=== PATIENT | female | born 1985 | race Caucasian/White ===

== ENCOUNTER 2016-12-18 12:29 | Emergency (ER) | payer MEDICARE ==
[2016-12-18] MEDS ORDERED: Geodon 20 MG INJ IM ONE ×2 (12:30→12:35)
[2016-12-18 12:48] VITALS: O2SAT 100
[2016-12-18 13:02] LABS: BASOPHIL % 0.3 % (0.0-0.4); Granulocytes % 64.8 % (36.0-66.0); Lymphocytes % 27.3 % (24.0-44.0); Mean Cell Volume 89.7 fl (78-100); Mean Corpuscular Hemoglobin 29.4 pg (26-32); Mean Platelet Volume 11.4 fl (6-9.5); Monocytes % 6.6 % (0.0-12.0); Platelet Count 227 K/mm3 (150-450); Red Blood Count 5.04 M/mm3 (4.1-5.4); Red Cell Distribution Width 13.4 % (11.5-14.0); White Blood Count 10.4 K/mm3 (4.0-10.5)
[2016-12-18 13:05] LABS: COMPLETE URINE MICROSCOPIC? NO; Collection Type VOID; Ph 6.5 (5-6)
--- NOTE | 2016-12-18 13:20 | ERPHSYRPT ---
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 FATHER STATES HE RESPONDED TO HIS HOME TODAY WHERE PT HAD CALLED EMS BECAUSE "PEOPLE ARE AFTER ME." Triage Nursing Assessment: PT PINK, WARM, DRY. PT CONFUSED TO PERSON PLACE AND TIME. PT YELLING TRYING TO [facility]. PT SCARED AND FEARFUL OF SURROUNDINGS. Physician History: CC: bipolar disorder Hx: 31 y/o patient with no local doctor. She has hx of bipolar disorder. She has been off meds. Father states she has been having hallucinations and seeing and hearing things. She was taken to [facility] a couple of days ago complaining of back pain and labor although not and had BTL. They gave pain meds. The real issue is she is not living in reality. She was running around the house playing dress up last night. Father called EMS and she was brought to ER. Father reports she needs emergency chcf. Severity of Symptoms-Max: severe Severity of Symptoms-Current: severe Allergies/Adverse Reactions: lactose Allergy (Mild, Verified 12/18/16 13:23) Diarrhea latex Allergy (Mild, Verified 12/18/16 13:23) Hives nickel Allergy (Mild, Verified 12/18/16 13:23) Hives Home Medications: No Reportable Medications [No Reported Medications] 12/18/16 [History] Hx Tetanus, Diphtheria Vaccination/Date Given: Yes (UNKNOW) Hx Influenza Vaccination/Date Given: (UNKNOWN) Hx Pneumococcal Vaccination/Date Given: (UNKNOWN) Immunizations Up to Date: (UNKOWN) - Past Medical History Pertinent Past Medical History: Yes Neurological History: No Pertinent History ENT History: No Pertinent History Cardiac History: No Pertinent History Respiratory History: Asthma, COPD Endocrine Medical History: Hypothyroidism Musculoskeletal History: Fibromyalgia GI Medical History: No Pertinent History History: No Pertinent History Psycho-Social History: Bipolar, Depression, Other Female Reproductive Disorders: No Pertinent History Other Medical History: BORDERLINE PERSONALITY DISORDER, LEFT LUNG SCAR TISSUE, SCHIZO-EFFECT BIPOLAR - Past Surgical History Past Surgical History: Yes Neuro Surgical History: No Pertinent History Cardiac: No Pertinent History Respiratory: No Pertinent History Gastrointestinal: No Pertinent History Genitourinary: No Pertinent History Musculoskeletal: No Pertinent History Female Surgical History: Section, Tubal Ligation Other Surgical History: ovarian cysts removed. ABLASION - Social History Smoking Status: Current every day smoker How long have you smoked: 13 YRS Exposure to second hand smoke: No Alcohol Use: None Drug Use: none Patient Lives Alone: No (here with father) Significant Family History: no pertinent family hx - Female History Hx Last Menstrual Period: UNKNOWN Hx Now: No - Review of Systems Constitutional: No Fever Respiratory: No Dyspnea Abdominal/Gastrointestinal: No Nausea, No Vomiting Genitourinary Symptoms: (pt reports, father denies) Neurological: No Headache Psychological: Emotional Lability, Hallucinations All Other Systems: Reviewed and Negative - Nursing Vital Signs Nursing Vital Signs: Initial Vital Signs Temperature 99.1 F Temperature Source Oral Pulse Rate 101 Respiratory Rate 18 Blood Pressure [Right Arm] 121/69 - Physical Exam General Appearance: alert, thin, other (very anxious, arrived with rapid speech , irrational thoughts stating she is in labor and her water broke) Eyes, Ears, Nose, Throat Exam: moist mucous membranes Neck Exam: normal inspection, non-tender, supple Respiratory Exam: normal breath sounds Cardiovascular Exam: regular rate/rhythm Gastrointestinal/Abdominal Exam: soft, No tenderness, No distention Neurological Exam: alert Thoughts/Hallucinations: delusions, flight of ideas Skin Exam: warm, dry, No rash SpO2 Interpretation: normal SpO2: 100 Oxygen Delivery: Room Air - Course Nursing assessment & vital signs reviewed: Yes EKG Interpreted by Me: RATE (93), Sinus Rhythm, NORMAL AXIS, NORMAL INTERVALS ( QTc 473), NORMAL QRS, NORMAL ST-T Ordered Tests: Active Orders 24 hr Category Date Time Status Clean Catch Urine Specimen STAT Care 12/18/16 12:30 Active EKG-ER Only STAT Care 12/18/16 12:32 Active ACETAMINOPHEN Stat Lab 12/18/16 12:50 Completed CBC W DIFF Stat Lab 12/18/16 12:50 Completed CMP Stat Lab 12/18/16 12:50 Completed Ethyl Alcohol,Urine Stat Lab 12/18/16 12:54 Completed HCG QUALITATIVE,SERUM Stat Lab 12/18/16 12:50 Completed SALICYLATE Stat Lab 12/18/16 12:50 Completed UA Stat Lab 12/18/16 12:54 Completed Urine Triage Profile Stat Lab 12/18/16 12:54 Completed VALPROIC ACID (DEPAKOTE) Stat Lab 12/18/16 13:22 Completed Medication Summary Discontinued Medications Generic Name Dose Route Start Last Admin Trade Name Jonathanq PRN Reason Stop Dose Admin Ziprasidone 10 mg 12/18/16 12:30 12/18/16 12:41 Geodon 20 Mg Inj IM 12/18/16 12:31 10 mg STAT ONE Administration Ziprasidone Confirm 12/18/16 12:35 Geodon 20 Mg Inj Administered 12/18/16 12:36 Dose 20 mg IM .STK-MED ONE Lab/Rad Data: Laboratory Result Diagrams 12/18/16 12:50 12/18/16 12:50 Laboratory Results 12/18/16 12/18/16 12/18/16 Range/Units 13:22 12:54 12:54 WBC (4.0-10.5) K/mm3 RBC (4.1-5.4) M/mm3 Hgb (12.0-16.0) gm/dl Hct (35-47) % MCV (78-100) fl MCH (26-32) pg MCHC (32-36) g/dl RDW (11.5-14.0) % Plt Count (150-450) K/mm3 MPV (6-9.5) fl Gran % (36.0-66.0) % Lymphocytes % (24.0-44.0) % Monocytes % (0.0-12.0) % Eosinophils % (0.00-5.0) % Basophils % (0.0-0.4) % Basophils # (0-0.4) Sodium (136-145) mEq/L Potassium (3.5-5.1) mEq/L Chloride (98-107) mEq/L Carbon Dioxide (21-32) mEq/L Anion Gap (5-15) MEQ/L BUN (9-20) mg/dL Creatinine (0.55-1.30) mg/dl Estimated GFR ML/MIN Glucose (70-110) MG/DL Calcium (8.5-10.1) mg/dL Total Bilirubin (0.2-1.0) mg/dL AST (15-37) U/L ALT (12-78) U/L Alkaline Phosphatase (46-116) U/L Serum Total Protein (6.4-8.2) gm/dL Albumin (3.4-5.0) g/dL Serum , Qual (Negative) Ur Collection Type Urine Color (YELLOW) Urine Appearance (CLEAR) Urine pH 6.5 (5-6) Ur Specific [place] (1.005-1.025) Urine Protein (Negative) Urine Glucose (UA) (NEGATIVE) mg/dL Urine Ketones (NEGATIVE) Urine Nitrite (NEGATIVE) Urine Bilirubin (NEGATIVE) Urine Urobilinogen (0-1) mg/dL Urine WBC (Auto) (NEGATIVE) Urine RBC (Auto) (0-5) Juan/ul Salicylates (2.8-20.0) mg/dl Urine Opiates Level NEG. (NEGATIVE) Ur Methadone NEG. (NEGATIVE) Acetaminophen (10-30) ug/ml Urine Barbiturates NEG. (NEGATIVE) Valproic Acid < 3.0 L (50-100) UG/ML Ur Phencyclidine (PCP) NEG. (NEGATIVE) Urine Amphetamine NEG. (NEGATIVE) U Benzodiazepine Level NEG. (NEGATIVE) Urine Cocaine NEG. (NEGATIVE) Urine Marijuana (THC) NEG. (NEGATIVE) Urine Ethyl Alcohol < 3 (0.00-20) mg/dl Specimen Received 12/18/16 12/18/16 12/18/16 Range/Units 12:54 12:50 12:50 WBC (4.0-10.5) K/mm3 RBC (4.1-5.4) M/mm3 Hgb (12.0-16.0) gm/dl Hct (35-47) % MCV (78-100) fl MCH (26-32) pg MCHC (32-36) g/dl RDW (11.5-14.0) % Plt Count (150-450) K/mm3 MPV (6-9.5) fl Gran % (36.0-66.0) % Lymphocytes % (24.0-44.0) % Monocytes % (0.0-12.0) % Eosinophils % (0.00-5.0) % Basophils % (0.0-0.4) % Basophils # (0-0.4) Sodium 142 (136-145) mEq/L Potassium 3.7 (3.5-5.1) mEq/L Chloride 106 (98-107) mEq/L Carbon Dioxide 25.2 (21-32) mEq/L Anion Gap 14.3 (5-15) MEQ/L BUN 7 L (9-20) mg/dL Creatinine 0.78 (0.55-1.30) mg/dl Estimated GFR > 60 ML/MIN Glucose 98 (70-110) MG/DL Calcium 8.9 (8.5-10.1) mg/dL Total Bilirubin 0.7 (0.2-1.0) mg/dL AST 17 (15-37) U/L ALT 16 (12-78) U/L Alkaline Phosphatase 82 (46-116) U/L Serum Total Protein 6.8 (6.4-8.2) gm/dL Albumin 4.0 (3.4-5.0) g/dL Serum , Qual NEGATIVE (Negative) Ur Collection Type VOID Urine Color YELLOW (YELLOW) Urine Appearance CLEAR (CLEAR) Urine pH 6.5 (5-6) Ur Specific [place] <=1.005 (1.005-1.025) Urine Protein NEGATIVE (Negative) Urine Glucose (UA) NEGATIVE (NEGATIVE) mg/dL Urine Ketones NEGATIVE (NEGATIVE) Urine Nitrite NEGATIVE (NEGATIVE) Urine Bilirubin NEGATIVE (NEGATIVE) Urine Urobilinogen 0.2 (0-1) mg/dL Urine WBC (Auto) NEGATIVE (NEGATIVE) Urine RBC (Auto) NEGATIVE (0-5) Juan/ul Salicylates 6.1 (2.8-20.0) mg/dl Urine Opiates Level (NEGATIVE) Ur Methadone (NEGATIVE) Acetaminophen < 2.0 L (10-30) ug/ml Urine Barbiturates (NEGATIVE) Valproic Acid (50-100) UG/ML Ur Phencyclidine (PCP) (NEGATIVE) Urine Amphetamine (NEGATIVE) U Benzodiazepine Level (NEGATIVE) Urine Cocaine (NEGATIVE) Urine Marijuana (THC) (NEGATIVE) Urine Ethyl Alcohol (0.00-20) mg/dl Specimen Received 12/18/16 1250 12/18/16 Range/Units 12:50 WBC 10.4 (4.0-10.5) K/mm3 RBC 5.04 (4.1-5.4) M/mm3 Hgb 14.8 (12.0-16.0) gm/dl Hct 45.2 (35-47) % MCV 89.7 (78-100) fl MCH 29.4 (26-32) pg MCHC 32.7 (32-36) g/dl RDW 13.4 (11.5-14.0) % Plt Count 227 (150-450) K/mm3 MPV 11.4 H (6-9.5) fl Gran % 64.8 (36.0-66.0) % Lymphocytes % 27.3 (24.0-44.0) % Monocytes % 6.6 (0.0-12.0) % Eosinophils % 1.0 (0.00-5.0) % Basophils % 0.3 (0.0-0.4) % Basophils # 0.03 (0-0.4) Sodium (136-145) mEq/L Potassium (3.5-5.1) mEq/L Chloride (98-107) mEq/L Carbon Dioxide (21-32) mEq/L Anion Gap (5-15) MEQ/L BUN (9-20) mg/dL Creatinine (0.55-1.30) mg/dl Estimated GFR ML/MIN Glucose (70-110) MG/DL Calcium (8.5-10.1) mg/dL Total Bilirubin (0.2-1.0) mg/dL AST (15-37) U/L ALT (12-78) U/L Alkaline Phosphatase (46-116) U/L Serum Total Protein (6.4-8.2) gm/dL Albumin (3.4-5.0) g/dL Serum , Qual (Negative) Ur Collection Type Urine Color (YELLOW) Urine Appearance (CLEAR) Urine pH (5-6) Ur Specific [place] (1.005-1.025) Urine Protein (Negative) Urine Glucose (UA) (NEGATIVE) mg/dL Urine Ketones (NEGATIVE) Urine Nitrite (NEGATIVE) Urine Bilirubin (NEGATIVE) Urine Urobilinogen (0-1) mg/dL Urine WBC (Auto) (NEGATIVE) Urine RBC (Auto) (0-5) Juan/ul Salicylates (2.8-20.0) mg/dl Urine Opiates Level (NEGATIVE) Ur Methadone (NEGATIVE) Acetaminophen (10-30) ug/ml Urine Barbiturates (NEGATIVE) Valproic Acid (50-100) UG/ML Ur Phencyclidine (PCP) (NEGATIVE) Urine Amphetamine (NEGATIVE) U Benzodiazepine Level (NEGATIVE) Urine Cocaine (NEGATIVE) Urine Marijuana (THC) (NEGATIVE) Urine Ethyl Alcohol (0.00-20) mg/dl Specimen Received - Progress Progress Note: 12/18/16 13:27 Spoke to Delia at [facility]. No beds at . She was there yesterday. Pt has obvious decompensation with psychosis. Will fax labs and attempt placement. Pt will be under ED. 12/18/16 13:56 Pt more cooperative. Ambulated to . Called Delia in access and they arranged HC admission bed. Will transfer under ED. Dr Morales accepts. Counseled pt/family regarding: lab results, diagnosis, need for follow-up - Departure Time of Disposition: 13:56 Departure Disposition: Transfer () Clinical Impression: Psychosis, Bipolar disorder Condition: Stable Critical Care Time: No Referrals: DOCTOR,NO FAMILY [Primary Care Provider] -
[2016-12-18 13:26] LABS: ALKALINE PHOSPHATASE 82 U/L (46-116); ANION GAP 14.3 MEQ/L (5-15); BILIRUBIN,TOTAL 0.7 mg/dL (0.2-1.0); BLOOD UREA NITROGEN 7 mg/dL (9-20); CHLORIDE 106 mEq/L (98-107); Carbon Dioxide 25.2 mEq/L (21-32); Glucose 98 MG/DL (70-110); Potassium 3.7 mEq/L (3.5-5.1); SGOT/AST 17 U/L (15-37); SGPT/ALT 16 U/L (12-78); SODIUM 142 mEq/L (136-145); Total Protein 6.8 gm/dL (6.4-8.2)
[2016-12-18 13:33] LABS: ACETAMINOPHEN < 2.0 ug/ml (10-30)
[2016-12-18] MEDS ORDERED: Ativan 1 MG PO ONE (14:55)
[2016-12-18] MEDS ORDERED: Ativan 2 MG/1 ML VIAL SL ONE (14:56)
[2016-12-18] MEDS ORDERED: Ativan 2 MG/1 ML VIAL ONE (14:57)
[2016-12-18 16:46] VITALS: BP 103/60; PULSE 88
== END 2016-12-18 16:46 | disposition short-term general hospital (02) ==
LOC: ED 12:29
DX: F42.9 Obsessive-compulsive disorder, unspecified (principal); F31.9 Bipolar disorder, unspecified
CPT/HCPCS: 96372; 99291; 93005; 81002; 84703; 80339; 80307 ×2; 80320; 83986; 85025; 80053; G0481; 36415; 99285; J2060; J3486

== ENCOUNTER 2019-01-01 18:23 | Emergency (ER) | payer MEDICARE ==
--- NOTE | 2019-01-01 18:42 | ERPHSYRPT ---
- History of Present Illness Time Seen by Provider: 01/01/19 18:42 Source: patient, family Exam Limitations: no limitations Physician History: 33 y/o white female presents with redness to right medial thigh. pt thinks there was a spider bite. she did not see spider. redness is worsening. tenderness present. Timing/Duration: day(s) Quality: burning, painful Severity: mild Location: extremities (right medial thigh) Possible Causes: insect bite Associated Symptoms: swelling/mass/lumps (right medial thigh) Allergies/Adverse Reactions: lactose Allergy (Mild, Verified 01/01/19 18:57) Diarrhea latex Allergy (Mild, Verified 01/01/19 18:57) Hives nickel Allergy (Mild, Verified 01/01/19 18:57) Hives adhesive tape Adverse Reaction (Verified 01/01/19 18:58) asenapine [From Saphris] Adverse Reaction (Verified 01/01/19 18:58) lurasidone [From Latuda] Adverse Reaction (Verified 01/01/19 18:58) Home Medications: Alprazolam 0.5 mg [xanAX 0.5 MG] 0.5 mg PO HS 01/01/19 [History] Alprazolam 1 mg [Xanax 1 mg] 1 mg PO DAILY 01/01/19 [History] Cholecalciferol (Vitamin D3) [Vitamin D3] 3,000 unit PO DAILY 01/01/19 [History] Dicyclomine HCl 20 mg [Bentyl 20 mg] 20 mg PO QID 01/01/19 [History] Divalproex Sodium [Divalproex Sodium ER] 500 mg PO BID 01/01/19 [History] Levothyroxine Sodium 75 mcg PO DAILY 01/01/19 [History] Omeprazole 40 mg PO DAILY 01/01/19 [History] Hx Tetanus, Diphtheria Vaccination/Date Given: Yes (UNKNOW) Hx Influenza Vaccination/Date Given: (UNKNOWN) Hx Pneumococcal Vaccination/Date Given: (UNKNOWN) - Review of Systems Constitutional: No Symptoms Eyes: No Symptoms Ears, Nose, & Throat: No Symptoms Respiratory: No Symptoms Cardiac: No Symptoms Abdominal/Gastrointestinal: No Symptoms Genitourinary Symptoms: No Symptoms Musculoskeletal: No Symptoms Skin: Cellulitis, Other (approx 8cm X 8cm. central bite site. no expressible pus. 4 to 5 cm central area of induration) Neurological: No Symptoms Psychological: No Symptoms Endocrine: No Symptoms Hematologic/Lymphatic: No Symptoms Immunological/Allergic: No Symptoms All Other Systems: Reviewed and Negative - Past Medical History Pertinent Past Medical History: Yes Neurological History: No Pertinent History ENT History: No Pertinent History Cardiac History: No Pertinent History Respiratory History: Asthma, COPD Endocrine Medical History: Hypothyroidism Musculoskeletal History: Fibromyalgia GI Medical History: No Pertinent History History: No Pertinent History Psycho-Social History: Bipolar, Depression, Other Female Reproductive Disorders: No Pertinent History Other Medical History: BORDERLINE PERSONALITY DISORDER, LEFT LUNG SCAR TISSUE, SCHIZO-EFFECT BIPOLAR - Past Surgical History Past Surgical History: Yes Neuro Surgical History: No Pertinent History Cardiac: No Pertinent History Respiratory: No Pertinent History Gastrointestinal: No Pertinent History Genitourinary: No Pertinent History Musculoskeletal: No Pertinent History Female Surgical History: Section, Tubal Ligation Other Surgical History: ovarian cysts removed. ABLASION - Social History Smoking Status: Current every day smoker How long have you smoked: 13 YRS Exposure to second hand smoke: No Alcohol Use: None Drug Use: none Patient Lives Alone: No (here with father) Significant Family History: no pertinent family hx - Nursing Vital Signs Nursing Vital Signs: Initial Vital Signs Temperature 98.4 F 01/01/19 18:52 Pulse Rate 107 H 01/01/19 18:52 Respiratory Rate 16 01/01/19 18:52 Blood Pressure 110/80 01/01/19 18:52 O2 Sat by Pulse Oximetry 95 01/01/19 18:52 Pain Scale Pain Intensity 7 - Physical Exam General Appearance: no apparent distress, alert, anxiety Eye Exam: PERRL/EOMI, eyes nml inspection Ears, Nose, Throat Exam: normal ENT inspection, moist mucous membranes Neck Exam: normal inspection, non-tender, supple, full range of motion Respiratory Exam: normal breath sounds, lungs clear, airway intact, No chest tenderness, No respiratory distress Cardiovascular Exam: regular rate/rhythm, normal heart sounds, normal peripheral pulses Gastrointestinal/Abdomen Exam: soft, normal bowel sounds, No tenderness Pelvic Exam: not done Rectal Exam: not done Back Exam: normal inspection, normal range of motion, No CVA tenderness, No vertebral tenderness Extremity Exam: normal inspection, normal range of motion, No pelvis stable Neurologic Exam: alert, oriented x 3, cooperative, licensed psychologist manager II-XII nml as tested Skin Exam: other (localized cellulitis right medial thigh, no abscess, central induration) Lymphatic Exam: No adenopathy Ordered Tests: Medication Summary Discontinued Medications Generic Name Dose Route Start Last Admin Trade Name Freq PRN Reason Stop Dose Admin Hydrocodone Bitart/Acetaminophen 1 tab 01/01/19 19:47 01/01/19 20:06 [place] 10/325 Mg Tablet PO 01/01/19 19:48 1 tab STAT ONE Administration Hydrocodone Bitart/Acetaminophen Confirm 01/01/19 19:59 [place] 10/325 Mg Tablet Administered 01/01/19 20:00 Dose 1 tab .ROUTE .STK-MED ONE Ceftriaxone Sodium 1,000 mg 01/01/19 19:46 01/01/19 20:07 Rocephin 1000 Mg Inj IM 01/01/19 19:47 1,000 mg STAT ONE Administration Ceftriaxone Sodium Confirm 01/01/19 19:59 Rocephin 1000 Mg Inj Administered 01/01/19 20:00 Dose 1,000 mg .ROUTE .STK-MED ONE Lidocaine HCl Confirm 01/01/19 20:04 Xylocaine 1% Hcl 20 Ml Mdv Administered 01/01/19 20:05 Dose 1 ml .ROUTE .STK-MED ONE Methylprednisolone Sodium Succinate 125 mg 01/01/19 19:47 01/01/19 20:06 Solu-Medrol 125 Mg IM 01/01/19 19:48 125 mg STAT ONE Administration Methylprednisolone Sodium Succinate Confirm 01/01/19 19:59 Solu-Medrol 125 Mg Administered 01/01/19 20:00 Dose 125 mg .ROUTE .STK-MED ONE - Progress Progress: unchanged Counseled pt/family regarding: diagnosis, need for follow-up - Departure Departure Disposition: Home Clinical Impression: Cellulitis Condition: Stable Critical Care Time: No Referrals: SHIMON ROMEO [NON-STAFF Y W/O PRIVILEGES] - Additional Instructions: keep area clean daily with soap and water. warm compresses to area 2 to 3 times daily but not directly on skin. return to ED if symptoms worsen. Prescriptions: Hydrocodone/APAP 5/325 [[place] 5/325 mg] 1 each PO Q8H PRN PRN #6 tablet MDD 3 PRN Reason: Pain Smz/Tmp Ds Tablet [Bactrim Ds Tablet] 1 udtab PO BID #14 tablet
[2019-01-01] MEDS ORDERED: Rocephin 1000 MG INJ IM ONE (19:46)
[2019-01-01] MEDS ORDERED: Norco 10/325 MG Tablet PO ONE (19:47)
[2019-01-01] MEDS ORDERED: solu-MEDROL 125 MG IM ONE (19:47)
[2019-01-01] MEDS ORDERED: solu-MEDROL 125 MG ONE (19:59)
[2019-01-01] MEDS ORDERED: Rocephin 1000 MG INJ ONE (19:59)
[2019-01-01] MEDS ORDERED: Norco 10/325 MG Tablet ONE (19:59)
[2019-01-01] MEDS ORDERED: XYLOCAINE 1% HCL 20 ML MDV ONE (20:04)
[2019-01-01 20:30] VITALS: BP 113/68; PULSE 92; O2SAT 100
== END 2019-01-01 20:35 | disposition home or self-care (01) ==
LOC: ED 18:23
DX: L03.115 Cellulitis of right lower limb (principal); J44.9 Chronic obstructive pulmonary disease, unspecified; E03.9 Hypothyroidism, unspecified; M79.7 Fibromyalgia; F31.9 Bipolar disorder, unspecified; Z79.899 Other long term (current) drug therapy
CPT/HCPCS: 96372; 99284; J0696; J2930; A9270-GY

== ENCOUNTER 2019-01-12 23:43 | Emergency (ER) | payer MEDICARE ==
[2019-01-13] MEDS ORDERED: CLEOCIN 150 MG CAPSULE PO ONE (00:26)
--- NOTE | 2019-01-13 00:26 | ERPHSYRPT ---
- History of Present Illness Time Seen by Provider: 01/12/19 23:59 Source: patient Exam Limitations: clinical condition Patient Subjective Stated Complaint: Abscess/spider bite Triage Nursing Assessment: Patient ambulated back to ED and transferred self to bed. Patient A+O X 3. Patient states she was seen last week in ED for a spider bite to right upper inner thigh. Patient was put on Bactrim and finished out her dose. Patient complains of abscess still on her right upper inner thigh. Right upper inner thigh noted to have small scab with hard area around it. Patient complains of constant burning pain. Physician History: PATIENT TREATED FOR INSECT BITE TO RIGHT INNER THIGH ON 01/01/2019 WITH ANTIBIOTIC BACTRIM DS, NOW PRESENTS TO ER FOR FOLLOWUP. STATES THE CELLULITIS INITIALLY 8CM X 8CM HAS IMPROVED IN SIZE. DENIES FEVER OR CHILLS. ADMITS TO EXPRESSING WOUND. DENIES DRAINAGE FROM WOUND. Timing/Duration: day(s) (11 DAYS AGO) Quality: other (DENIES PAIN) Location: extremities Possible Causes: insect bite Associated Symptoms: denies symptoms Allergies/Adverse Reactions: lactose Allergy (Mild, Verified 01/12/19 23:48) Diarrhea latex Allergy (Mild, Verified 01/12/19 23:48) Hives nickel Allergy (Mild, Verified 01/12/19 23:48) Hives adhesive tape Adverse Reaction (Verified 01/12/19 23:48) asenapine [From Saphris] Adverse Reaction (Verified 01/12/19 23:48) lurasidone [From Latuda] Adverse Reaction (Verified 01/12/19 23:48) Home Medications: Alprazolam 0.5 mg [xanAX 0.5 MG] 0.5 mg PO DAILY PRN 01/01/19 [History] Alprazolam 1 mg [Xanax 1 mg] 1 mg PO BID 01/01/19 [History] Dicyclomine HCl 20 mg [Bentyl 20 mg] 20 mg PO QID 01/01/19 [History] Divalproex Sodium [Divalproex Sodium ER] 1,500 mg PO HS 01/01/19 [History] Levothyroxine Sodium 75 mcg PO DAILY 01/01/19 [History] Omeprazole 40 mg PO DAILY 01/01/19 [History] Acyclovir 1 tab PO BID 01/12/19 [History] Sertraline HCl [Zoloft] 100 mg PO DAILY 01/12/19 [History] Hx Tetanus, Diphtheria Vaccination/Date Given: (UNKNOW) Hx Influenza Vaccination/Date Given: (UNKNOWN) Hx Pneumococcal Vaccination/Date Given: (UNKNOWN) Immunizations Up to Date: Yes - Review of Systems Constitutional: No Symptoms Musculoskeletal: Other (LOCALIZED SWELLING OVER RIGHT THIGH) Neurological: No Symptoms - Past Medical History Pertinent Past Medical History: Yes Neurological History: No Pertinent History ENT History: No Pertinent History Cardiac History: No Pertinent History Respiratory History: Asthma, COPD Endocrine Medical History: Hypothyroidism Musculoskeletal History: Fibromyalgia GI Medical History: No Pertinent History History: No Pertinent History Psycho-Social History: Bipolar, Depression, Other Female Reproductive Disorders: No Pertinent History Other Medical History: BORDERLINE PERSONALITY DISORDER, LEFT LUNG SCAR TISSUE, SCHIZO-EFFECT BIPOLAR - Past Surgical History Past Surgical History: Yes Neuro Surgical History: No Pertinent History Cardiac: No Pertinent History Respiratory: No Pertinent History Gastrointestinal: No Pertinent History Genitourinary: No Pertinent History Musculoskeletal: No Pertinent History Female Surgical History: Section, Tubal Ligation Other Surgical History: ovarian cysts removed. ABLASION - Social History Smoking Status: Current every day smoker How long have you smoked: 13 YRS Exposure to second hand smoke: No Alcohol Use: None Drug Use: none Patient Lives Alone: No Significant Family History: no pertinent family hx - Female History Hx Last Menstrual Period: Thermal lining ablation of uterus Hx Now: No - Nursing Vital Signs Nursing Vital Signs: Initial Vital Signs Pulse Rate 79 01/12/19 23:44 Blood Pressure 124/73 01/12/19 23:44 O2 Sat by Pulse Oximetry 98 01/12/19 23:44 Pain Scale Pain Intensity 3 - Physical Exam General Appearance: no apparent distress Extremity Exam: other (THERE IS A 1CM X 1.5CM NONFLUCTUANT SWELLING MID RIGHT THIGH, MEDIA ASPECT, NO DRAINAGE OR ERYTHEMA ADJACENT TO LESION) SpO2 Interpretation: normal SpO2: 92 - Progress Progress Note: 01/13/19 00:29 ADMINISTERED CLINDAYMCIN 300MG ORALLY Counseled pt/family regarding: diagnosis, need for follow-up - Departure Departure Disposition: Home Clinical Impression: RESOLVING CELLULITIS RIGHT THIGH Condition: Stable Critical Care Time: No Referrals: Provider,Unknown [NON-STAFF PHY W/O PRIVILEGES] - Additional Instructions: AVOID EXPRESSING THIGH LESION. ANTIBIOTIC CLINDAYMCIN 300MG EVERY 8 HOURS FOR 7 DAYS. CONSULT YOUR PRIMARY CARE PROVIDER FOR FOLLOWUP IN 1 WEEK. WATCH FOR SIGNS OF INFECTION REDNESS, SWELLING OR DRAINAGE. Prescriptions: Clindamycin HCl 300 mg PO TID #21 capsule
[2019-01-13] MEDS ORDERED: CLEOCIN 150 MG CAPSULE ONE (00:31)
[2019-01-13 00:38] VITALS: BP 108/55; PULSE 73; O2SAT 98
== END 2019-01-13 00:45 | disposition home or self-care (01) ==
LOC: ED 23:43
DX: L03.116 Cellulitis of left lower limb (principal); Z79.899 Other long term (current) drug therapy; E03.9 Hypothyroidism, unspecified; J44.9 Chronic obstructive pulmonary disease, unspecified; M79.7 Fibromyalgia; J45.909 Unspecified asthma, uncomplicated; F31.9 Bipolar disorder, unspecified; T63.301A Toxic effect of unspecified spider venom, accidental (unintentional), initial encounter
CPT/HCPCS: 99283; A9270-GY

== ENCOUNTER 2019-05-22 21:04 | Emergency (ER) | payer MEDICARE ==
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
[2019-05-23 00:16] VITALS: PULSE 81
[2019-05-23] MEDS ORDERED: TYLENOL 325 MG PO STA (00:39)
[2019-05-23] MEDS ORDERED: Cyclobenzaprine 10 MG PO ONE (00:39)
[2019-05-23] MEDS ORDERED: Cyclobenzaprine 10 MG ONE (00:42)
[2019-05-23] MEDS ORDERED: TYLENOL 325 MG ONE (00:42)
[2019-05-23 01:55] VITALS: BP 118/64; O2SAT 99
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
== END 2019-05-23 01:58 | disposition home or self-care (01) ==
LOC: ED 21:04
DX: T14.8XXA Other injury of unspecified body region, initial encounter (principal); Y04.0XXA Assault by unarmed brawl or fight, initial encounter; Y93.9 Activity, unspecified; S06.9X9A Unspecified intracranial injury with loss of consciousness of unspecified duration, initial encounter; R51 Headache; M54.2 Cervicalgia; M79.642 Pain in left hand; M25.561 Pain in right knee; R07.9 Chest pain, unspecified; F41.9 Anxiety disorder, unspecified; J44.9 Chronic obstructive pulmonary disease, unspecified; E03.9 Hypothyroidism, unspecified; Z79.899 Other long term (current) drug therapy
CPT/HCPCS: 70450; 72125; 73130; 73560; 93005; 99284; A9270-GY

== ENCOUNTER 2020-12-06 21:43 | Emergency (ER) | payer MEDICARE ==
[2020-12-06 22:27] LABS: Absolute Neutrophil Ct (ANC) 7.15 (1.4-6.9); BASOPHIL % 0.2 % (0.0-0.4); Basophil (Absolute #) 0.03 (0-0.4); Eosinophil % 0.6 % (0.00-5.0); Eosinophil (Absolute #) 0.07 (0-0.5); Hematocrit 43.6 % (35-47); Hemoglobin 14.1 gm/dl (12.0-16.0); Lymphocyte (Absolute #) 4.17 (1.0-4.6); Lymphocytes % 34.4 % (24.0-44.0); Mean Corpuscular Hemoglobin 29.4 pg (26-32); Mean Corpuscular Hgb Concent. 32.3 g/dl (32-36); Mean Platelet Volume 11.4 fl (7.5-11.0); Monocyte (Absolute #) 0.69 (0.0-1.3); Monocytes % 5.7 % (0.0-12.0); Neutrophil % 59.1 % (36.0-66.0); Platelet Count 227 K/mm3 (150-450); Red Blood Count 4.79 M/mm3 (4.1-5.4); White Blood Count 12.1 K/mm3 (4.0-10.5)
[2020-12-06 22:35] LABS: ALBUMIN 4.4 g/dL (3.5-5.0); ALKALINE PHOSPHATASE 64 U/L (38-126); ANION GAP 10.6 MEQ/L (5-15); BLOOD UREA NITROGEN 12 mg/dL (7-17); CHLORIDE 104 mmol/L (98-107); Calcium 9.6 mg/dL (8.4-10.2); Carbon Dioxide 27 mmol/L (22-30); Creatinine 1 0.56 mg/dL (0.52-1.04); EST GLOMERULAR FILTRATION RATE > 60.0 ML/MIN; ETHYL ALCOHOL < 10 mg/dL (0-10); Glucose 116 mg/dL (74-106); Potassium 3.4 mmol/L (3.5-5.1); SALICYLATE < 1.0 mg/dL (2-20); SGOT/AST 20 U/L (14-36); SGPT/ALT 16 U/L (0-35); SODIUM 139 mmol/L (137-145); Total Protein 7.1 g/dL (6.3-8.2)
[2020-12-06 22:39] LABS: Appearance SLIGHTLY CLOUDY (CLEAR); Bilirubin NEGATIVE (NEGATIVE); Blood NEGATIVE Ery/ul (0-5); Epithelial Cells RARE /HPF (FEW); Glucose NEGATIVE (NEGATIVE); Ketones NEGATIVE (NEGATIVE); Leukocyte Esterase NEGATIVE (NEGATIVE); Mucus SLIGHT /HPF (NEGATIVE); Nitrite NEGATIVE (NEGATIVE); Protein,Urine Dip NEGATIVE (Negative); Urobilinogen 2 mg/dL (0-1)
[2020-12-06 22:50] LABS: Barbiturate,Urine NEGATIVE (NEGATIVE); Benzodiazepine,Urine NEGATIVE (NEGATIVE); Cocaine,Urine NEGATIVE (NEGATIVE); Methadone,Urine NEGATIVE (NEGATIVE); Opiate,Urine NEGATIVE (NEGATIVE); PCP,Urine NEGATIVE (NEGATIVE); THC,Urine NEGATIVE (NEGATIVE)
[2020-12-06 23:13] LABS: Amphetamine,Urine POSITIVE (NEGATIVE)
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
[2020-12-07] MEDS ORDERED: Klor Con 10 MEQ PO ONE ×2 (00:21→00:31)
[2020-12-07] MEDS ORDERED: Inapsine 5 MG/2 ML IV ONE (00:53)
[2020-12-07 07:27] VITALS: BP 106/58; PULSE 65; O2SAT 97
--- NOTE | 2020-12-07 08:57 | XRAY ---
Indication: Posterior neck pain. No known injury. Multiple contiguous axial images obtained through the cervical spine. Sagittal and coronal reformatted images obtained. Comparison: May 22, 2019. Axial images again negative for acute fracture, suspicious bony lesions, or spinal canal stenosis. Spinous processes C6 again demonstrates old fracture versus nonunited ossification center. Sagittal and coronal reformatted images again demonstrates lordotic reversal, positional versus paraspinal spasm. Vertebral body heights/disc spaces maintained. Again no acute compression fracture, subluxation, or jumped facet. Normal appearing craniocervical junction. Visualized noncontrasted soft tissues including base of the brain and lung apices are unremarkable. Impression: 1. Stable cervical lordotic reversal, positional versus paraspinal spasm. 2. Stable C6 spinous process old fracture versus nonunited ossification center. 3. No new or acute abnormalities. Comment: Preliminary interpretation was made by [facility]. No critical discrepancy.
== END 2020-12-07 07:29 ==
LOC: ED 21:43
DX: F20.9 Schizophrenia, unspecified (principal); F23 Brief psychotic disorder; R45.6 Violent behavior
CPT/HCPCS: 36415; 72125; 80053; 80307; 81001; 82550; 84703; 85025; 93005; 96374; 99285; G0480; A9270-GY

== ENCOUNTER 2020-12-28 10:21 | Emergency (ER) | payer MEDICARE ==
[2020-12-28 10:29] VITALS: BP 118/79; PULSE 83; O2SAT 100
[2020-12-28] MEDS ORDERED: Augmentin 875-125 Tablet ONE (10:30)
[2020-12-28] MEDS ORDERED: TORAdol 30 mg Injection ONE (10:30)
[2020-12-28] MEDS: TORAdol 30 mg Injection IM ONE (10:30)
[2020-12-28] MEDS: Augmentin 875-125 Tablet PO ONE (10:30)
--- NOTE | 2020-12-28 10:31 | ERPHSYRPT ---
- History of Present Illness Time Seen by Provider: 12/28/20 10:30 Source: patient Exam Limitations: no limitations Patient Subjective Stated Complaint: pt here for toothache to lower left jaw Triage Nursing Assessment: pt arrived per ambulance, skin w/d/p, resp easy, has face mask in place,pt has decayed tooth to lower left jaw Physician History: Patient is a 35-year-old female presents to our ED with complaints of dental pain today Patient has a carious tooth left mandible. And specific tooth #17 is carious tender. Pain worse with mastication. Pain improved with rest. Pain tends to cause a slight headache. No trauma no fever. No nausea or vomiting. No diaphoresis. Symptoms are mild to moderate in intensity. No specific worsening improving factors. Patient denies possibility of . Patient otherwise voices no other complaints concerns at this time. Timing/Duration: today Severity: moderate Modifying Factors: Improves With: eating Associated Symptoms: denies symptoms Allergies/Adverse Reactions: lactose Allergy (Mild, Verified 12/28/20 10:29) Diarrhea latex Allergy (Mild, Verified 12/28/20 10:29) Hives nickel Allergy (Mild, Verified 12/28/20 10:29) Hives adhesive tape Adverse Reaction (Verified 12/28/20 10:29) asenapine [From Saphris] Adverse Reaction (Verified 12/28/20 10:29) lurasidone [From Latuda] Adverse Reaction (Verified 12/28/20 10:29) Home Medications: Divalproex Sodium [Divalproex Sodium ER] 500 mg PO HS 01/01/19 [History] Levothyroxine Sodium 88 mcg PO DAILY 01/01/19 [History] Sertraline HCl [Zoloft] 50 mg PO DAILY 01/12/19 [History] Metformin HCl 500 mg [Glucophage 500 MG] 500 mg PO BID 12/06/20 [History] Hx Tetanus, Diphtheria Vaccination/Date Given: Yes Hx Influenza Vaccination/Date Given: No Hx Pneumococcal Vaccination/Date Given: No Immunizations Up to Date: Yes Travel Risk - International Travel Have you traveled outside of the country in past 3 weeks: No - Coronavirus Screening Are you exhibiting any of the following symptoms?: No Close contact with a COVID-19 positive Pt in past 14-21 Days: No - Vaccine Status Have you recieved a Covid-19 vaccination: Yes Parakeet Raiser: Moderna - Vaccination Dates Date of 2cond Vaccination (if applicable): NA - Review of Systems Constitutional: No Symptoms, No Fever, No Chills Eyes: No Symptoms Ears, Nose, & Throat: No Symptoms Respiratory: No Symptoms, No Cough, No Dyspnea Cardiac: No Symptoms, No Chest Pain, No Edema, No Syncope Abdominal/Gastrointestinal: No Symptoms, No Abdominal Pain, No Nausea, No Vomiting, No Diarrhea Genitourinary Symptoms: No Symptoms, No Dysuria Musculoskeletal: No Symptoms, No Back Pain, No Neck Pain Skin: No Symptoms, No Rash Neurological: No Symptoms, No Dizziness, No Focal Weakness, No Sensory Changes Psychological: No Symptoms Endocrine: No Symptoms Hematologic/Lymphatic: No Symptoms Immunological/Allergic: No Symptoms All Other Systems: Reviewed and Negative - Past Medical History Pertinent Past Medical History: Yes Neurological History: No Pertinent History ENT History: No Pertinent History Cardiac History: No Pertinent History Respiratory History: Asthma, COPD Endocrine Medical History: Diabetes Type II, Hypothyroidism Musculoskeletal History: Fibromyalgia, Other GI Medical History: No Pertinent History History: No Pertinent History Psycho-Social History: Bipolar, Depression, Other Female Reproductive Disorders: No Pertinent History Other Medical History: BIPOAR, PTSD, SCHIZOPHRENIC. spinal stenosis, scoliosis, disk degen disease - Past Surgical History Past Surgical History: Yes Neuro Surgical History: No Pertinent History Cardiac: No Pertinent History Respiratory: No Pertinent History Gastrointestinal: No Pertinent History Genitourinary: No Pertinent History Musculoskeletal: No Pertinent History Female Surgical History: Section, Tubal Ligation Other Surgical History: ovarian cysts removed. ABLATION - Social History Smoking Status: Current every day smoker How long have you smoked: 21 yrs Exposure to second hand smoke: Yes Alcohol Use: None Drug Use: marijuana Patient Lives Alone: No Significant Family History: no pertinent family hx - Female History Hx Last Menstrual Period: post Hx Now: No - Nursing Vital Signs Nursing Vital Signs: Initial Vital Signs Temperature 99.5 F 12/28/20 10:24 Pulse Rate 83 12/28/20 10:24 Respiratory Rate 18 12/28/20 10:24 Blood Pressure 118/79 12/28/20 10:24 O2 Sat by Pulse Oximetry 100 12/28/20 10:24 Pain Scale Pain Intensity 10 - Physical Exam General Appearance: no apparent distress, alert Eye Exam: PERRL/EOMI, eyes nml inspection Ears, Nose, Throat Exam: normal ENT inspection, TMs normal, pharynx normal, moist mucous membranes, other (Tooth #17 is carious. There is swelling of the adjacent gingiva. The tooth is tender. Minimal swelling however. Remaining of intraoral exam is within normal limits. No lymphadenopathy) Neck Exam: normal inspection, non-tender, supple, full range of motion Respiratory Exam: normal breath sounds, lungs clear, No respiratory distress Cardiovascular Exam: regular rate/rhythm, normal heart sounds, normal peripheral pulses Gastrointestinal/Abdomen Exam: soft, normal bowel sounds, No tenderness, No mass Back Exam: normal inspection, normal range of motion, No CVA tenderness, No vertebral tenderness Extremity Exam: normal inspection, normal range of motion, pelvis stable Neurologic Exam: alert, oriented x 3, cooperative, normal mood/affect, nml cerebellar function, nml station & gait, sensation nml, No motor deficits Skin Exam: normal color, warm, dry, No rash Lymphatic Exam: No adenopathy SpO2 Interpretation: normal SpO2: 100 O2 Delivery: Room Air - Course Nursing assessment & vital signs reviewed: Yes Ordered Tests: Medication Summary Discontinued Medications Generic Name Dose Route Start Last Admin Trade Name Freq PRN Reason Stop Dose Admin Amoxicillin/Clavulanate Potassium 875 mg 12/28/20 10:25 12/28/20 10:30 Augmentin 875-125 Tablet PO 12/28/20 10:26 875 mg STAT ONE Administration Amoxicillin/Clavulanate Potassium Confirm 12/28/20 10:30 Augmentin 875-125 Tablet Administered 12/28/20 10:31 Dose 875 mg .ROUTE .STK-MED ONE Ketorolac Tromethamine 30 mg 12/28/20 10:24 12/28/20 10:30 Toradol 30 Mg Injection IM 12/28/20 10:25 30 mg STAT ONE Administration Ketorolac Tromethamine Confirm 12/28/20 10:30 Toradol 30 Mg Injection Administered 12/28/20 10:31 Dose 30 mg .ROUTE .STK-MED ONE - Progress Progress: improved Progress Note: Patient reassessed. Pain improved. Vitals stable. Patient has a carious tooth. Toradol for pain control administered. Patient received a dose of Augmentin orally as well. No indication for further work-up at this time. A prescription for Augmentin and Toradol was forwarded to patient's pharmacy. Wi ll discharge home. Patient will follow up with her dentist or primary care doctor within 48 hours for reevaluation. His patient voices no other complaints at this time. 12/28/20 10:35 12/28/20 10:39 Counseled pt/family regarding: diagnosis, need for follow-up, smoking cessation - Departure Departure Disposition: Home Clinical Impression: Tooth caries, Pain, dental, Dental abscess Condition: Stable Critical Care Time: No Referrals: MILTON CHAN, [Primary Care Provider] - Instructions: Dental Pain (DC), Tooth Decay, Adult (DC) Additional Instructions: Discharge/Care Plan BRIAN SERNA was seen on 12/28/20 in the Emergency Room. The patient was counseled regarding Diagnosis,Lab results, Imaging studies, need for follow up and when to return to the Emergency Room. Prescriptions given: Discharge Note I have spoken with the patient and/or caregivers. I have explained the patient's condition, diagnosis and treatment plan based on the information available to me at this time. I have answered the patient's and/or caregiver's questions and addressed any concerns. The patient and/or caregivers have as good understanding of the patient's diagnosis, condition and treatment plan as can be expected at this point. The vital signs have been stable. The patient's condition is stable and appropriate for discharge from the emergency department. The patient will pursue further outpatient evaluation with the primary care physician or other designated or consulting physician as outlined in the discharge instructions. The patient and/or caregivers are agreeable to this plan of care and follow-up instructions have been explained in detail. The patient and/or caregivers have received these instruction. The patient/and or caregivers are aware that any significant change in condition or worsening of symptoms should prompt an immediate return to this or the closest emergency department or call 911. Prescriptions: Amox Tr/Potass Clav. 875 mg [Augmentin 875-125 Tablet] 1 each PO BID 7 Days #14 tablet Ketorolac Tromethamine [Toradol] 10 mg PO TID 5 Days #15 tablet
== END 2020-12-28 10:55 | disposition home or self-care (01) ==
LOC: ED 10:21
DX: K02.9 Dental caries, unspecified (principal); K08.89 Other specified disorders of teeth and supporting structures; K04.7 Periapical abscess without sinus
CPT/HCPCS: 96372; 99283; J1885; A9270-GY

== ENCOUNTER 2021-06-21 17:53 | Emergency (ER) | payer MEDICARE ==
--- NOTE | 2021-06-21 17:55 | ERPHSYRPT ---
- History of Present Illness Time Seen by Provider: 06/21/21 17:54 Source: patient, EMS Exam Limitations: no limitations Physician History: This is a 36-year-old white female who presents with concerns of infection of a spider bite that occurred approximately 1 week ago. Approximately 5 days ago she was seen at [facility] and there was incision and drainage and packing of spider bite abscess on the left inner thigh. She did not take the packing out for several days and she took the packing out and it was black. She became concerned. She was also concerned about the redness around the opening of the incision and drainage site as well as the yellowish film of tissue present. There is been clear drainage from the site. She has had no fevers or chills. She is on doxycycline and cefdinir antibiotics. Quality: burning Severity: mild (Moderate) Location: extremities (Left inner thigh) Possible Causes: insect bite Associated Symptoms: denies symptoms Allergies/Adverse Reactions: latex Allergy (Mild, Verified 06/21/21 17:59) Hives nickel Allergy (Mild, Verified 06/21/21 17:59) Hives adhesive tape Adverse Reaction (Verified 06/21/21 17:59) asenapine [From Saphris] Adverse Reaction (Verified 06/21/21 17:59) lurasidone [From Latuda] Adverse Reaction (Verified 06/21/21 17:59) Home Medications: Divalproex Sodium [Divalproex Sodium ER] 500 mg PO HS 01/01/19 [History] Levothyroxine Sodium 88 mcg PO DAILY 01/01/19 [History] Sertraline HCl [Zoloft] 50 mg PO DAILY 01/12/19 [History] Metformin HCl 500 mg [Glucophage 500 MG] 500 mg PO BID 12/06/20 [History] Cefdinir [Omnicef 300 mg] 300 mg PO BID 06/21/21 [History] Gabapentin 100 mg [Neurontin 100 MG] 100 mg PO HS 06/21/21 [History] Hydroxyzine HCl 25 mg [Atarax 25 mg] 25 mg PO HS 06/21/21 [History] Hx Tetanus, Diphtheria Vaccination/Date Given: Yes Hx Influenza Vaccination/Date Given: No Hx Pneumococcal Vaccination/Date Given: No Travel Risk - International Travel Have you traveled outside of the country in past 3 weeks: No - Coronavirus Screening Are you exhibiting any of the following symptoms?: No Close contact with a COVID-19 positive Pt in past 14-21 Days: No - Vaccine Status Have you recieved a Covid-19 vaccination: Yes Stockroom Helper: Moderna - Vaccination Dates Date of 2cond Vaccination (if applicable): NA - Review of Systems Constitutional: No Symptoms Eyes: No Symptoms Ears, Nose, & Throat: No Symptoms Respiratory: No Symptoms Cardiac: No Symptoms Abdominal/Gastrointestinal: No Symptoms Genitourinary Symptoms: No Symptoms Musculoskeletal: No Symptoms Skin: Other (Open incision and drainage abscess site left inner thigh.) Neurological: No Symptoms Psychological: No Symptoms Endocrine: No Symptoms Hematologic/Lymphatic: No Symptoms Immunological/Allergic: No Symptoms All Other Systems: Reviewed and Negative - Past Medical History Pertinent Past Medical History: Yes Neurological History: No Pertinent History ENT History: No Pertinent History Cardiac History: No Pertinent History Respiratory History: Asthma, COPD Endocrine Medical History: Diabetes Type II, Hypothyroidism Musculoskeletal History: Fibromyalgia, Other GI Medical History: No Pertinent History History: No Pertinent History Psycho-Social History: Bipolar, Depression, Other Female Reproductive Disorders: No Pertinent History Other Medical History: BIPOAR, PTSD, SCHIZOPHRENIC. spinal stenosis, scoliosis, disk degen disease - Past Surgical History Past Surgical History: Yes Neuro Surgical History: No Pertinent History Cardiac: No Pertinent History Respiratory: No Pertinent History Gastrointestinal: No Pertinent History Genitourinary: No Pertinent History Musculoskeletal: No Pertinent History Female Surgical History: Section, Tubal Ligation Other Surgical History: ovarian cysts removed. ABLATION - Social History Smoking Status: Current every day smoker How long have you smoked: 21 yrs Exposure to second hand smoke: Yes Alcohol Use: None Drug Use: marijuana Patient Lives Alone: No Significant Family History: no pertinent family hx - Nursing Vital Signs Nursing Vital Signs: Initial Vital Signs Temperature 97.9 F 06/21/21 18:01 Pulse Rate 76 06/21/21 18:01 Respiratory Rate 20 06/21/21 18:01 Blood Pressure 105/66 06/21/21 18:01 O2 Sat by Pulse Oximetry 98 06/21/21 18:01 Pain Scale Pain Intensity 10 - Physical Exam General Appearance: no apparent distress, alert, anxiety Eye Exam: PERRL/EOMI, eyes nml inspection Ears, Nose, Throat Exam: normal ENT inspection, moist mucous membranes Neck Exam: normal inspection, non-tender, supple, full range of motion Respiratory Exam: airway intact, No chest tenderness, No respiratory distress Gastrointestinal/Abdomen Exam: No tenderness Pelvic Exam: not done Rectal Exam: not done Back Exam: normal inspection, normal range of motion, No CVA tenderness, No vertebral tenderness Extremity Exam: normal range of motion, tenderness (At the left inner thigh incision and drainage site. There is no odor. There is no evidence of periwound cellulitis. However there is some redness and mild redness exudate present within the wound and edges of the wound.) Neurologic Exam: alert, oriented x 3, cooperative, buckle sewer II-XII nml as tested, normal mood/affect, nml cerebellar function, nml station & gait, sensation nml Skin Exam: normal color, warm, dry Lymphatic Exam: No adenopathy SpO2 Interpretation: normal O2 Delivery: Room Air Procedures - Additional Procedures Progress: The open incision drainage abscess site was cleaned and packed with half-inch plain packing gauze and covered with a bandage. Patient told the procedure well. - Course Nursing assessment & vital signs reviewed: Yes Ordered Tests: Medication Summary Generic Name Dose Route Start Last Admin Trade Name Freq PRN Reason Stop Dose Admin Ceftriaxone Sodium/Dextrose 1 g in 50 mls @ 100 mls/hr 06/21/21 19:09 Rocephin 1 Gm-D5w 50 Ml Bag IV 06/21/21 19:38 STAT STA - Progress Progress: unchanged, pain not gone completely Counseled pt/family regarding: diagnosis, need for follow-up - Departure Departure Disposition: Home Clinical Impression: Visit for wound check Condition: Stable Critical Care Time: No Referrals: MILTON CHAN DO [NON-STAFF PHY W/O PRIVILEGES] - Additional Instructions: Wound was packed today in the emergency department. Keep the current packing in place till tomorrow evening. Tomorrow evening pulled the packing out dry. Clean the site with syringe as you were doing using soapy water. Flush it out very well. Repacked the wound each day and repeat. Continue taking your antibiotics as prescribed. Follow-up with your primary care physician for further management.
[2021-06-21] MEDS ORDERED: ROCEPHIN 1 Gm-D5w 50 ml Bag** 1 G/50 ML IVPB IV STA (19:09)
[2021-06-21] MEDS ORDERED: ROCEPHIN 1 Gm-D5w 50 ml Bag** 1 G/50 ML IVPB IV ONE (19:15)
[2021-06-21 19:19] VITALS: BP 97/60; PULSE 72; O2SAT 99
== END 2021-06-21 19:52 | disposition home or self-care (01) ==
LOC: ED 17:53
DX: Z48.00 Encounter for change or removal of nonsurgical wound dressing (principal)
CPT/HCPCS: 36000; 99284; J0696

== ENCOUNTER 2021-07-24 18:06 | Emergency (ER) | payer MEDICARE ==
[2021-07-24 18:09] VITALS: BP 121/70; PULSE 94; O2SAT 100
[2021-07-24 18:34] LABS: Absolute Neutrophil Ct (ANC) 4.03 (1.4-6.9); BASOPHIL % 0.4 % (0.0-0.4); Basophil (Absolute #) 0.03 (0-0.4); Eosinophil % 1.6 % (0.00-5.0); Eosinophil (Absolute #) 0.12 (0-0.5); Hematocrit 46.1 % (35-47); Hemoglobin 15.4 gm/dl (12.0-16.0); Lymphocyte (Absolute #) 2.99 (1.0-4.6); Lymphocytes % 39.6 % (24.0-44.0); Mean Cell Volume 91.7 fl (78-100); Mean Corpuscular Hemoglobin 30.6 pg (26-32); Mean Corpuscular Hgb Concent. 33.4 g/dl (32-36); Mean Platelet Volume 11.1 fl (7.5-11.0); Monocyte (Absolute #) 0.38 (0.0-1.3); Neutrophil % 53.4 % (36.0-66.0); Platelet Count 288 K/mm3 (150-450); Red Blood Count 5.03 M/mm3 (4.1-5.4); Red Cell Distribution Width 13.1 % (11.5-14.0); White Blood Count 7.6 K/mm3 (4.0-10.5)
[2021-07-24] MEDS ORDERED: Sodium Chloride 0.9% 1000 ML 1,000 ML IV STA (18:36)
[2021-07-24] MEDS ORDERED: Sodium Chloride 0.9% 1000 ML 1,000 ML ONE (18:36)
[2021-07-24 18:37] LABS: Appearance CLEAR (CLEAR); Bilirubin NEGATIVE (NEGATIVE); Blood NEGATIVE Ery/ul (0-5); Glucose >=500 mg/dL (NEGATIVE); Ketones SMALL (NEGATIVE); Leukocyte Esterase NEGATIVE (NEGATIVE); Nitrite NEGATIVE (NEGATIVE); Protein,Urine Dip NEGATIVE (Negative); Urobilinogen NEGATIVE mg/dL (0-1)
[2021-07-24 18:47] LABS: ALBUMIN 4.3 g/dL (3.5-5.0); ALKALINE PHOSPHATASE 87 U/L (38-126); ANION GAP 14.5 MEQ/L (5-15); BLOOD UREA NITROGEN 7 mg/dL (7-17); CHLORIDE 92 mmol/L (98-107); Calcium 9.3 mg/dL (8.4-10.2); Carbon Dioxide 24 mmol/L (22-30); Creatinine 1 0.45 mg/dL (0.52-1.04); EST GLOMERULAR FILTRATION RATE > 60.0 ML/MIN; Potassium 4.4 mmol/L (3.5-5.1); SGOT/AST 22 U/L (14-36); SGPT/ALT 21 U/L (0-35); SODIUM 127 mmol/L (137-145); Total Protein 6.4 g/dL (6.3-8.2)
[2021-07-24 19:05] LABS: Glucose 602 mg/dL (74-106)
== END 2021-07-24 18:55 | disposition left against medical advice (07) ==
LOC: ED 18:06
DX: Z53.29 Procedure and treatment not carried out because of patient's decision for other reasons (principal)
CPT/HCPCS: 36415; 80053; 81001; 85025; 99284

== ENCOUNTER 2021-08-10 04:55 | Emergency (ER) | payer MEDICARE ==
[2013-05-27 00:30] VITALS: BP 98/68
[2021-08-10] MEDS ORDERED: Sodium Chloride 0.9% 1000 ML 1,000 ML IV STA (05:21)
[2021-08-10] MEDS ORDERED: Sodium Chloride 0.9% 1000 ML 1,000 ML ONE (05:27)
[2021-08-10] MEDS ORDERED: Zofran 4 MG/2 ML VIAL ONE ×2 (05:38→07:16)
[2021-08-10] MEDS ORDERED: Zofran 4 MG/2 ML VIAL IV ONE ×2 (05:38→07:24)
--- NOTE | 2021-08-10 05:38 | ERPHSYRPT ---
- History of Present Illness Time Seen by Provider: 08/10/21 05:15 Source: patient Exam Limitations: no limitations Patient Subjective Stated Complaint: pt states "I was positive for covid on saturday. I vomited 7 times today." Triage Nursing Assessment: pt came into the er via ambulance; pt is axo x3; pt is anxious, restless, yelling; c/o vomiting; pt states she was positive for covid on saturday; pt states 10/10 pain to head; pt states she vomited 7 times today; pt states that her body is achy; clear lung sounds in all lobes; clear heart tone; abd is flat, soft; hyperactive bowel sounds; tachycardic; hypertensive Physician History: Patient is a 36-year-old female presents to our ED via EMS for evaluation of painful myalgias nausea and vomiting. Patient states she feels weak. Patient reports being Covid positive. Patient had a positive Covid test on Saturday 2 days ago. Patient symptoms are progressive. Symptoms are moderate in intensity. No specific worsening or improving factors. Patient denies fevers. Patient feels mildly short of breath. Patient was tachycardic upon arrival. Patient reports that she has a history of diabetes. No chest pain. Patient voices no other complaints at this time. Timing/Duration: today Severity: moderate Modifying Factors: Improves With: nothing Associated Symptoms: shortness of breath, loss of appetite, No chills, No fever, No syncope, No seizure Allergies/Adverse Reactions: latex Allergy (Mild, Verified 07/24/21 18:16) Hives nickel Allergy (Mild, Verified 07/24/21 18:16) Hives adhesive tape Adverse Reaction (Verified 07/24/21 18:16) asenapine [From Saphris] Adverse Reaction (Verified 07/24/21 18:16) lurasidone [From Latuda] Adverse Reaction (Verified 07/24/21 18:16) Home Medications: Divalproex Sodium [Divalproex Sodium ER] 500 mg PO HS 01/01/19 [History] Levothyroxine Sodium 88 mcg PO DAILY 01/01/19 [History] Sertraline HCl [Zoloft] 50 mg PO DAILY 01/12/19 [History] Metformin HCl 500 mg [Glucophage 500 MG] 500 mg PO BID 12/06/20 [History] Gabapentin 100 mg [Neurontin 100 MG] 100 mg PO HS 06/21/21 [History] Hydroxyzine HCl 25 mg [Atarax 25 mg] 25 mg PO HS 06/21/21 [History] Hx Tetanus, Diphtheria Vaccination/Date Given: Yes Hx Influenza Vaccination/Date Given: No Hx Pneumococcal Vaccination/Date Given: No Travel Risk - International Travel Have you traveled outside of the country in past 3 weeks: No - Coronavirus Screening Are you exhibiting any of the following symptoms?: Yes Symptoms: Fever, Cough: New Onset, Shortness of Breath, Vomiting/Diarrhea, Headaches/Body Aches/Fatigue Close contact with a COVID-19 positive Pt in past 14-21 Days: No - Vaccine Status Have you recieved a Covid-19 vaccination: Yes 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 - Vaccination Dates Date of 2cond Vaccination (if applicable): 01/22/2021 - Review of Systems Constitutional: No Symptoms, No Fever, No Chills Eyes: No Symptoms Ears, Nose, & Throat: No Symptoms Respiratory: No Symptoms, No Cough, No Dyspnea Cardiac: No Symptoms, No Chest Pain, No Edema, No Syncope Abdominal/Gastrointestinal: No Symptoms, No Abdominal Pain, No Nausea, No Vomiting, No Diarrhea Genitourinary Symptoms: No Symptoms, No Dysuria Musculoskeletal: No Symptoms, No Back Pain, No Neck Pain Skin: No Symptoms, No Rash Neurological: No Symptoms, No Dizziness, No Focal Weakness, No Sensory Changes Psychological: No Symptoms Endocrine: No Symptoms Hematologic/Lymphatic: No Symptoms Immunological/Allergic: No Symptoms All Other Systems: Reviewed and Negative - Past Medical History Pertinent Past Medical History: Yes Neurological History: No Pertinent History ENT History: No Pertinent History Cardiac History: No Pertinent History Respiratory History: Asthma, COPD Endocrine Medical History: Diabetes Type II, Hypothyroidism Musculoskeletal History: Fibromyalgia, Other GI Medical History: No Pertinent History, Hepatitis History: No Pertinent History Psycho-Social History: Bipolar, Depression, Other Female Reproductive Disorders: No Pertinent History Other Medical History: BIPOAR, PTSD, SCHIZOPHRENIC. spinal stenosis, scoliosis, disk degen disease - Past Surgical History Past Surgical History: Yes Neuro Surgical History: No Pertinent History Cardiac: No Pertinent History Respiratory: No Pertinent History Gastrointestinal: No Pertinent History Genitourinary: No Pertinent History Musculoskeletal: No Pertinent History Female Surgical History: Section, Tubal Ligation Other Surgical History: ovarian cysts removed. ABLATION - Social History Smoking Status: Current every day smoker How long have you smoked: 21 yrs Exposure to second hand smoke: Yes Alcohol Use: None Drug Use: marijuana Patient Lives Alone: No Significant Family History: no pertinent family hx - Female History Hx Now: No - Nursing Vital Signs Nursing Vital Signs: Initial Vital Signs Temperature 98 F 08/10/21 04:59 Pulse Rate 112 H 08/10/21 04:59 Respiratory Rate 22 08/10/21 04:59 Blood Pressure 158/71 08/10/21 04:59 O2 Sat by Pulse Oximetry 100 08/10/21 04:59 Pain Scale Pain Intensity 10 - Physical Exam General Appearance: no apparent distress, alert, thin, other (Thin cachectic appearing patient hyperventilating possible Kussmal respirations.) Eye Exam: PERRL/EOMI, eyes nml inspection Ears, Nose, Throat Exam: normal ENT inspection, TMs normal, pharynx normal, moist mucous membranes Neck Exam: normal inspection, non-tender, supple, full range of motion Respiratory Exam: normal breath sounds, lungs clear, airway intact, No respiratory distress Cardiovascular Exam: regular rate/rhythm, normal heart sounds, normal peripheral pulses Gastrointestinal/Abdomen Exam: soft, normal bowel sounds, No tenderness, No mass Back Exam: normal inspection, normal range of motion, No CVA tenderness, No vertebral tenderness Extremity Exam: normal inspection, normal range of motion, pelvis stable Neurologic Exam: alert, oriented x 3, cooperative, normal mood/affect, sensation nml, No motor deficits Skin Exam: normal color, warm, dry, No rash Lymphatic Exam: No adenopathy SpO2 Interpretation: normal SpO2: 96 O2 Delivery: Room Air - Course Nursing assessment & vital signs reviewed: Yes EKG Interpreted by Me: RATE ([id number]), Sinus Tach, Right [place] Deviation, prolonged QT interval - Radiology Exams Chest X-ray Interpretation: Interpreted by me (Normal heart lungs and bony thorax.) Ordered Tests: Active Orders 24 hr Category Date Time Status Microstrategy Developer STAT Care 08/10/21 05:22 Active EKG-ER Only STAT Care 08/10/21 05:21 Active IV Insertion STAT Care 08/10/21 05:21 Active Pulse Oximetry (ED) STAT Care 08/10/21 05:21 Active CHEST 1 VIEW (PORTABLE) Stat Exams 08/10/21 05:22 Taken ARTERIAL BLOOD GASES Urgent Lab 08/10/21 05:21 Ordered CBC W DIFF Stat Lab 08/10/21 05:49 Completed CMP Stat Lab 08/10/21 05:49 Received Lactic Acid Stat Lab 08/10/21 05:21 Completed MAGNESIUM Stat Lab 08/10/21 05:49 Received Manual Differential NC Stat Lab 08/10/21 05:49 Completed TROPONIN Q3H Lab 08/10/21 05:49 Completed TROPONIN Q3H Lab 08/10/21 08:30 Ordered TROPONIN Q3H Lab 08/10/21 11:30 Ordered TROPONIN Q3H Lab 08/10/21 14:30 Ordered TROPONIN Q3H Lab 08/10/21 17:30 Ordered UA W/RFX UR CULTURE Stat Lab 08/10/21 06:29 Ordered Urine Triage Profile Stat Lab 08/10/21 06:29 Ordered VBG [VENOUS BLOOD GAS] Stat Lab 08/10/21 05:58 Completed Medication Summary Generic Name Dose Route Start Last Admin Trade Name Freq PRN Reason Stop Dose Admin Potassium Chloride 20 meq in 100 mls @ 50 mls/hr 08/10/21 06:15 08/10/21 06: 16 Potassium Chloride 20 Meq In Water 100ml IV 08/10/21 10:14 50 mls/hr Q2H DIANN Administration Sodium Chloride 1,000 mls @ 168 mls/hr 08/10/21 06:30 08/10/21 06:41 Sodium Chloride 0.9% 1000 Ml IV 09/09/21 06:29 168 mls/hr .Q5H58M DIANN Administration Insulin Human Regular 100 unit 100 mls @ 4.44 mls/hr 08/10/21 06:24 / Sodium Chloride IV 09/09/21 06:23 .[id number] PRN DKA/HYPERGLYCEMIA Protocol 0.1 UNIT/KG/HR Discontinued Medications Generic Name Dose Route Start Last Admin Trade Name Freq PRN Reason Stop Dose Admin Sodium Chloride 1,000 mls @ 999 mls/hr 08/10/21 05:21 08/10/21 06:47 Sodium Chloride 0.9% 1000 Ml IV 08/10/21 06:21 Infused .Q1H1M STA Infusion Sodium Chloride Confirm 08/10/21 05:27 Sodium Chloride 0.9% 1000 Ml Administered 08/10/21 05:28 Dose 1,000 mls @ ud .ROUTE .STK-MED ONE Potassium Chloride/Sodium Chloride Confirm 08/10/21 06:08 Sodium Chloride 0.9% W/ 20 Meq Kcl/Liter Administered 08/10/21 06:09 Dose 1,000 mls @ ud IV .STK-MED ONE Ondansetron HCl 4 mg 08/10/21 05:38 08/10/21 05:39 Ondansetron Hcl 4 Mg/2 Ml Vial IV 08/10/21 05:39 4 mg STAT ONE Administration Ondansetron HCl Confirm 08/10/21 05:38 Ondansetron Hcl 4 Mg/2 Ml Vial Administered 08/10/21 05:39 Dose 4 mg .ROUTE .STK-MED ONE Potassium Chloride 40 meq 08/10/21 06:05 08/10/21 06:11 Potassium Chloride 10 Meq Tablet PO 08/10/21 06:06 40 meq STAT ONE Administration Potassium Chloride Confirm 08/10/21 06:08 Potassium Chloride 10 Meq Tablet Administered 08/10/21 06:09 Dose 40 meq PO .STK-MED ONE Lab/Rad Data: Laboratory Result Diagrams 08/10/21 05:49 08/10/21 05:49 Laboratory Results 08/10/21 08/10/21 08/10/21 Range/Units 06:29 05:58 05:49 WBC (4.0-10.5) K/mm3 RBC (4.1-5.4) M/mm3 Hgb (12.0-16.0) gm/dl Hct (35-47) % MCV (78-100) fl MCH (26-32) pg MCHC (32-36) g/dl RDW (11.5-14.0) % Plt Count (150-450) K/mm3 MPV (7.5-11.0) fl pO2/FiO2 Ratio 21.0 % VBG pH 7.06 L* (7.32-7.42) VBG pCO2 at Pat Temp 20 L* (42-55) mm/Hg VBG pO2 at Pat Temp 48 H (25-40) mm/Hg VBG HCO3 5.7 L* (22-28) meq/L VBG O2 Sat (Lianna) 79.8 L (95-100) VBG Base Excess -22.9 L (-2.0-2.0) VBG Hemoglobin 17.2 VBG Carboxyhemoglobin 3.3 (0.0-6.9) % T HGB POC Potassium 3.4 L (3.5-5.1) Sodium (137-145) mmol/L Potassium (3.5-5.1) mmol/L Chloride (98-107) mmol/L Carbon Dioxide (22-30) mmol/L Anion Gap BUN (7-17) mg/dL Creatinine (0.52-1.04) mg/dL Estimated GFR ML/MIN Glucose (74-106) mg/dL Lactic Acid (0.4-2.0) Calcium (8.4-10.2) mg/dL Magnesium (1.6-2.3) mg/dL Total Bilirubin (0.2-1.3) mg/dL AST (14-36) U/L ALT (0-35) U/L Alkaline Phosphatase (38-126) U/L Troponin I < 0.012 (0.000-0.034) ng/mL Serum Total Protein (6.3-8.2) g/dL Albumin (3.5-5.0) g/dL Urine Color YELLOW (YELLOW) Urine Appearance CLEAR (CLEAR) Urine pH 5.0 (5-6) Ur Specific [place] 1.023 (1.005-1.025) Urine Protein 100 (Negative) Urine Ketones MODERATE (NEGATIVE) Urine Blood SMALL (0-5) Juan/ul Urine Nitrite NEGATIVE (NEGATIVE) Urine Bilirubin NEGATIVE (NEGATIVE) Urine Urobilinogen NEGATIVE (0-1) mg/dL Ur Leukocyte Esterase NEGATIVE (NEGATIVE) Urine WBC (Auto) 0-2 (0-5) /HPF Urine RBC (Auto) 0-2 (0-2) /HPF U Epithel Cells (Auto) RARE (FEW) /HPF Urine Bacteria (Auto) RARE (NEGATIVE) /HPF Urine Mucus (Auto) SLIGHT (NEGATIVE) /HPF Urine Culture Reflexed NO (NO) Urine Glucose >=500 (NEGATIVE) mg/dL 08/10/21 08/10/21 08/10/21 Range/Units 05:49 05:49 05:21 WBC 22.1 H (4.0-10.5) K/mm3 RBC 5.37 (4.1-5.4) M/mm3 Hgb 16.7 H (12.0-16.0) gm/dl Hct 50.6 H (35-47) % MCV 94.2 (78-100) fl MCH 31.1 (26-32) pg MCHC 33.0 (32-36) g/dl RDW 13.1 (11.5-14.0) % Plt Count 337 (150-450) K/mm3 MPV 11.6 H (7.5-11.0) fl pO2/FiO2 Ratio % VBG pH (7.32-7.42) VBG pCO2 at Pat Temp (42-55) mm/Hg VBG pO2 at Pat Temp (25-40) mm/Hg VBG HCO3 (22-28) meq/L VBG O2 Sat (Lianna) (95-100) VBG Base Excess (-2.0-2.0) VBG Hemoglobin VBG Carboxyhemoglobin (0.0-6.9) % T HGB POC Potassium (3.5-5.1) Sodium 135 L (137-145) mmol/L Potassium 3.7 (3.5-5.1) mmol/L Chloride 95 L (98-107) mmol/L Carbon Dioxide < 5 L* (22-30) mmol/L Anion Gap Not Reportable BUN 15 (7-17) mg/dL Creatinine 0.91 (0.52-1.04) mg/dL Estimated GFR > 60.0 ML/MIN Glucose 543 H* (74-106) mg/dL Lactic Acid 1.8 (0.4-2.0) Calcium 9.5 (8.4-10.2) mg/dL Magnesium 1.8 (1.6-2.3) mg/dL Total Bilirubin 0.60 (0.2-1.3) mg/dL AST 15 (14-36) U/L ALT 19 (0-35) U/L Alkaline Phosphatase 138 H (38-126) U/L Troponin I (0.000-0.034) ng/mL Serum Total Protein 7.8 (6.3-8.2) g/dL Albumin 5.1 H (3.5-5.0) g/dL Urine Color (YELLOW) Urine Appearance (CLEAR) Urine pH (5-6) Ur Specific [place] (1.005-1.025) Urine Protein (Negative) Urine Ketones (NEGATIVE) Urine Blood (0-5) Juan/ul Urine Nitrite (NEGATIVE) Urine Bilirubin (NEGATIVE) Urine Urobilinogen (0-1) mg/dL Ur Leukocyte Esterase (NEGATIVE) Urine WBC (Auto) (0-5) /HPF Urine RBC (Auto) (0-2) /HPF U Epithel Cells (Auto) (FEW) /HPF Urine Bacteria (Auto) (NEGATIVE) /HPF Urine Mucus (Auto) (NEGATIVE) /HPF Urine Culture Reflexed (NO) Urine Glucose (NEGATIVE) mg/dL - Progress Progress: improved Progress Note: Kussmaul respirations observed. VBG reveals a metabolic acidosis. Patient's pH is 7.06. Bicarb is 5.7. Potassium 3.4. Patient received a 20 cc/kg liter bolus. Patient currently on 2 times maintenance fluids at 168 cc/h. Potassium replacement initiated. Patient received 40 mEq potassium p.o. 40 mEq potassium IV piggyback ordered. Insulin at 0.1 units/kg/h ordered. We will perform every hour glucose checks as well as every 2 hour potassium check. Sodium bicarb not administered as this would worsen Talib respiration as well as draw potassium further into the cells. Patient's mental status appears to be improving. Patient has a leukocytosis of 22. At this point it is unclear what is driving the leukocytosis. No clear focus of infection observed at this point. UA pending. Chest x-ray is essentially negative. However patient is Covid positive. However, this typically drives WBC down. 08/10/21 06:26 Corrected sodium is 141. Serum osmolarity: 305 08/10/21 06:53 There is currently a change of shift. Patient endorsed to Dr. Collins at approximately 7 AM. Covid test pending. Patient will require admission to ICU. Plan of care discussed with patient. She agrees to admission to [facility] for further evaluation and treatment. UA pending. Troponin negative Portions of this note were created with voice recognition technology. There may be grammatical, spelling, punctuation or sound alike errors 08/10/21 07:05 Counseled pt/family regarding: lab results, diagnosis, rad results - Departure Departure Disposition: Observation Clinical Impression: DKA (diabetic ketoacidosis), Leukocytosis, Hypokalemia, Sinus tachycardia, COVID-19 Condition: Stable Critical Care Time: No Referrals: SHIMON ROMEO [Primary Care Provider] - Follow up/PCP as directed
[2021-08-10 05:53] LABS: Hematocrit 50.6 % (35-47); Hemoglobin 16.7 gm/dl (12.0-16.0); Mean Cell Volume 94.2 fl (78-100); Mean Corpuscular Hemoglobin 31.1 pg (26-32); Mean Platelet Volume 11.6 fl (7.5-11.0); Platelet Count 337 K/mm3 (150-450); Red Blood Count 5.37 M/mm3 (4.1-5.4); Red Cell Distribution Width 13.1 % (11.5-14.0); White Blood Count 22.1 K/mm3 (4.0-10.5)
[2021-08-10 06:00] LABS: VBG BASE EXCESS -22.9 (-2.0-2.0); VBG CARBOXYHEMOGLOBIN 3.3 % T HGB (0.0-6.9); VBG HCO3- 5.7 meq/L (22-28); VBG HEMOGLOBIN 17.2; VBG O2 SATURATION 79.8 (95-100); VBG POTASSIUM 3.4 (3.5-5.1); VBG pH 7.06 (7.32-7.42)
[2021-08-10] MEDS ORDERED: Klor Con 10 MEQ PO ONE ×2 (06:05→06:08)
[2021-08-10] MEDS ORDERED: Sodium Chloride 0.9% W/ 20 mEq KCl/LITER 0 ML IV ONE (06:08)
[2021-08-10] MEDS ORDERED: POTASSIUM CHLORIDE 20 mEq IN WATER 100ML 200 ML IV ONE (06:14)
[2021-08-10] MEDS ORDERED: POTASSIUM CHLORIDE 20 mEq IN WATER 100ML 20 MEQ/100 ML BAG IV SCH (06:15)
[2021-08-10] MEDS ORDERED: HUMULIN R 100 UNIT in Sodium Chloride 0.9% 100 ML BAG 100 ML IV PRN (06:24)
[2021-08-10] MEDS ORDERED: Sodium Chloride 0.9% 1000 ML 1,000 ML IV SCH (06:30)
[2021-08-10 06:44] LABS: ALBUMIN 5.1 g/dL (3.5-5.0); ALKALINE PHOSPHATASE 138 U/L (38-126); BLOOD UREA NITROGEN 15 mg/dL (7-17); CHLORIDE 95 mmol/L (98-107); Calcium 9.5 mg/dL (8.4-10.2); Creatinine 1 0.91 mg/dL (0.52-1.04); EST GLOMERULAR FILTRATION RATE > 60.0 ML/MIN; MAGNESIUM 1.8 mg/dL (1.6-2.3); Potassium 3.7 mmol/L (3.5-5.1); SGOT/AST 15 U/L (14-36); SGPT/ALT 19 U/L (0-35); SODIUM 135 mmol/L (137-145); Total Protein 7.8 g/dL (6.3-8.2)
[2021-08-10 06:48] LABS: Carbon Dioxide < 5 mmol/L (22-30)
[2021-08-10 06:49] LABS: Glucose 543 mg/dL (74-106)
[2021-08-10 06:50] LABS: Appearance CLEAR (CLEAR); Bacteria RARE /HPF (NEGATIVE); Bilirubin NEGATIVE (NEGATIVE); Blood SMALL Ery/ul (0-5); Epithelial Cells RARE /HPF (FEW); Glucose >=500 mg/dL (NEGATIVE); Ketones MODERATE (NEGATIVE); Leukocyte Esterase NEGATIVE (NEGATIVE); Mucus SLIGHT /HPF (NEGATIVE); Nitrite NEGATIVE (NEGATIVE); Protein,Urine Dip 100 (Negative); RBC 0-2 /HPF (0-2); Specific Gravity 1.023 (1.005-1.025); Urobilinogen NEGATIVE mg/dL (0-1); WBC 0-2 /HPF (0-5)
[2021-08-10 07:03] VITALS: BP 113/75; PULSE 97
[2021-08-10 07:06] VITALS: O2SAT 96
[2021-08-10 07:14] LABS: Lymphocytes 9 % (24-44); Monocyte 3 % (0.0-12.0); Neutrophils 88 % (36.0-66.0); Platelet Estimate NORMAL (NORMAL); Total Cells Counted 100; Toxic Granulation 1+
[2021-08-10 07:17] LABS: Amphetamine,Urine NEGATIVE (NEGATIVE); Barbiturate,Urine NEGATIVE (NEGATIVE); Benzodiazepine,Urine NEGATIVE (NEGATIVE); Cocaine,Urine NEGATIVE (NEGATIVE); Methadone,Urine NEGATIVE (NEGATIVE); Opiate,Urine NEGATIVE (NEGATIVE); PCP,Urine NEGATIVE (NEGATIVE); THC,Urine NEGATIVE (NEGATIVE)
[2021-08-10 07:50] LABS: INFLUENZA A NEGATIVE (NEGATIVE); INFLUENZA B NEGATIVE (NEGATIVE); RESPIRATORY SYNCTIAL VIRUS NEGATIVE (Negative)
[2021-08-10 07:53] LABS: SARS-CoV-2 Xpert Express POSITIVE (NEGATIVE)
--- NOTE | 2021-08-10 09:02 | XRAY ---
Indication: Pneumonia. Positive Covid 19. Comparison: April 15, 2015. Portable chest again hyperinflated with small bilateral hilar and left base calcified granulomas. Remaining heart, lungs, and bony thorax unremarkable. No new/acute findings.
== END 2021-08-10 08:35 | disposition left against medical advice (07) ==
LOC: ED 04:55
DX: U07.1 COVID-19 (principal); E11.10 Type 2 diabetes mellitus with ketoacidosis without coma; Z79.84 Long term (current) use of oral hypoglycemic drugs; D72.829 Elevated white blood cell count, unspecified; E87.6 Hypokalemia; R00.0 Tachycardia, unspecified; M79.18 Myalgia, other site; R11.2 Nausea with vomiting, unspecified; R53.1 Weakness; J44.9 Chronic obstructive pulmonary disease, unspecified; Z72.0 Tobacco use
CPT/HCPCS: 0241U; 36000; 36415; 51702; 71045; 80053; 80307; 81001; 82805; 82947; 83605; 83735; 84484; 85025; 93005; 93041; 94760; 96360; 96374; 96376; 99285; J2405; J3480; A9270-GY

== ENCOUNTER 2021-08-10 09:31 | Emergency (ER) | payer MEDICARE ==
--- NOTE | 2021-08-10 09:40 | ERPHSYRPT ---
- History of Present Illness Time Seen by Provider: 08/10/21 09:35 Source: patient, EMS Exam Limitations: no limitations Physician History: This is a 36-year-old white female diabetic who left AMA approximately 1 hour ago and was brought back into the emergency department with shortness of breath. She tested positive for COVID-19 infection as well as DKA. She will be admitted into the Covid unit by Dr. Soriano. Severity: moderate Associated Symptoms: nausea, vomiting, shortness of breath Allergies/Adverse Reactions: latex Allergy (Mild, Verified 07/24/21 18:16) Hives nickel Allergy (Mild, Verified 07/24/21 18:16) Hives adhesive tape Adverse Reaction (Verified 07/24/21 18:16) asenapine [From Saphris] Adverse Reaction (Verified 07/24/21 18:16) lurasidone [From Latuda] Adverse Reaction (Verified 07/24/21 18:16) Home Medications: Divalproex Sodium [Divalproex Sodium ER] 500 mg PO HS 01/01/19 [History] Levothyroxine Sodium 88 mcg PO DAILY 01/01/19 [History] Sertraline HCl [Zoloft] 50 mg PO DAILY 01/12/19 [History] Metformin HCl 500 mg [Glucophage 500 MG] 500 mg PO BID 12/06/20 [History] Gabapentin 100 mg [Neurontin 100 MG] 100 mg PO HS 06/21/21 [History] Hydroxyzine HCl 25 mg [Atarax 25 mg] 25 mg PO HS 06/21/21 [History] Hx Tetanus, Diphtheria Vaccination/Date Given: Yes Hx Influenza Vaccination/Date Given: No Hx Pneumococcal Vaccination/Date Given: No Travel Risk - International Travel Have you traveled outside of the country in past 3 weeks: No - Coronavirus Screening Are you exhibiting any of the following symptoms?: No Close contact with a COVID-19 positive Pt in past 14-21 Days: Yes - Vaccine Status Have you recieved a Covid-19 vaccination: Yes Medical Device: Moderna - Vaccination Dates Date of 2cond Vaccination (if applicable): 01/22/2021 - Review of Systems Constitutional: Weakness Eyes: No Symptoms Ears, Nose, & Throat: No Symptoms Respiratory: Cough, Dyspnea Cardiac: No Symptoms Abdominal/Gastrointestinal: Nausea, Vomiting Genitourinary Symptoms: No Symptoms Musculoskeletal: Arthralgias, Myalgias Skin: No Symptoms Neurological: No Symptoms Psychological: No Symptoms Endocrine: No Symptoms Hematologic/Lymphatic: No Symptoms Immunological/Allergic: No Symptoms All Other Systems: Reviewed and Negative - Past Medical History Pertinent Past Medical History: Yes Neurological History: No Pertinent History ENT History: No Pertinent History Cardiac History: No Pertinent History Respiratory History: Asthma, COPD Endocrine Medical History: Diabetes Type II, Hypothyroidism Musculoskeletal History: Fibromyalgia, Other GI Medical History: No Pertinent History, Hepatitis History: No Pertinent History Psycho-Social History: Bipolar, Depression, Other Female Reproductive Disorders: No Pertinent History Other Medical History: BIPOAR, PTSD, SCHIZOPHRENIC. spinal stenosis, scoliosis, disk degen disease - Past Surgical History Past Surgical History: Yes Neuro Surgical History: No Pertinent History Cardiac: No Pertinent History Respiratory: No Pertinent History Gastrointestinal: No Pertinent History Genitourinary: No Pertinent History Musculoskeletal: No Pertinent History Female Surgical History: Section, Tubal Ligation Other Surgical History: ovarian cysts removed. ABLATION - Social History Smoking Status: Current every day smoker How long have you smoked: 21 yrs Exposure to second hand smoke: Yes Alcohol Use: None Drug Use: marijuana Patient Lives Alone: No Significant Family History: no pertinent family hx - Physical Exam General Appearance: mild distress, alert (To moderate distress), anxiety Eye Exam: PERRL/EOMI, eyes nml inspection Ears, Nose, Throat Exam: dry mucous membranes Neck Exam: normal inspection, non-tender, supple, full range of motion Respiratory Exam: normal breath sounds, lungs clear, airway intact, No chest tenderness, No respiratory distress Gastrointestinal/Abdomen Exam: soft, No tenderness Pelvic Exam: not done Rectal Exam: not done Back Exam: normal inspection, normal range of motion, No CVA tenderness, No vertebral tenderness Extremity Exam: normal inspection, normal range of motion, pelvis stable Neurologic Exam: alert, reconciling clerk II-XII nml as tested, normal mood/affect, sensation nml Skin Exam: normal color, warm, dry Lymphatic Exam: No adenopathy SpO2 Interpretation: normal O2 Delivery: Room Air - Course Nursing assessment & vital signs reviewed: Yes Ordered Tests: Active Orders 24 hr Category Date Time Status Transfer Order Routine Transfer 08/10/21 Ordered - Progress Progress: unchanged Progress Note: 08/10/21 09:39 This patient returns immediately after leaving AMA because of shortness of breath. She also stated that she thought about it and realize it we had told her that she might because of her condition so she came back into the emergency department by EMS. Patient is being admitted to the Covid unit. Counseled pt/family regarding: lab results, diagnosis - Departure Departure Disposition: In-patient Admission Clinical Impression: COVID-19 virus infection, DKA (diabetic ketoacidosis), Encounter for medical screening examination Condition: Fair Critical Care Time: No Referrals: SHIMON ROMEO [Primary Care Provider] - Follow up/PCP as directed
[2021-08-10] MEDS ORDERED: TYLENOL 325 MG PO PRN (11:46)
[2021-08-10] MEDS ORDERED: Sodium Chloride 0.9% 1000 ML 1,000 ML IV SCH ×3 (11:46→16:15)
[2021-08-10] MEDS ORDERED: HYDROCODONE-CHLORPHEN ER SUSP PO PRN (11:46)
[2021-08-10] MEDS ORDERED: Zofran 4 MG/2 ML VIAL IV PRN (11:46)
[2021-08-10] MEDS ORDERED: Sodium Chloride 0.9% 1000 ML 1,000 ML ONE (11:51)
[2021-08-10 11:54] LABS: BLOOD UREA NITROGEN 19 mg/dL (7-17); CHLORIDE 104 mmol/L (98-107); Calcium 9.7 mg/dL (8.4-10.2); Creatinine 1 0.92 mg/dL (0.52-1.04); EST GLOMERULAR FILTRATION RATE > 60.0 ML/MIN; Potassium 4.4 mmol/L (3.5-5.1); SODIUM 138 mmol/L (137-145)
[2021-08-10 11:57] LABS: Glucose 517 mg/dL (74-106)
[2021-08-10 11:58] LABS: Carbon Dioxide < 5 mmol/L (22-30)
[2021-08-10] MEDS ORDERED: HUMULIN R 100 UNIT in Sodium Chloride 0.9% 100 ML BAG 100 ML IV PRN (12:00)
[2021-08-10] MEDS ORDERED: REMDESIVIR 200 MG in Sodium Chloride 0.9% 250 ML 250 ML IV ONE (12:00)
[2021-08-10] MEDS: PROTONIX 40 MG IV IV SCH (13:07)
[2021-08-10] MEDS: ENOXAPARIN SODIUM SQ SCH (13:07)
[2021-08-10] MEDS ORDERED: Sodium Chloride 0.9% 1000 ML 1,000 ML IV STA (14:08)
[2021-08-10] MEDS ORDERED: Ativan 2 MG/1 ML VIAL IV PRN (14:32)
[2021-08-10 15:44] LABS: ANION GAP 23.7 MEQ/L (5-15); BLOOD UREA NITROGEN 22 mg/dL (7-17); CHLORIDE 112 mmol/L (98-107); Calcium 8.6 mg/dL (8.4-10.2); Creatinine 1 0.76 mg/dL (0.52-1.04); EST GLOMERULAR FILTRATION RATE > 60.0 ML/MIN; Glucose 313 mg/dL (74-106); PHOSPHOROUS 2.4 mg/dL (2.5-4.5); Potassium 3.8 mmol/L (3.5-5.1); SODIUM 138 mmol/L (137-145)
[2021-08-10 15:48] LABS: Carbon Dioxide 7 mmol/L (22-30)
[2021-08-10 19:17] LABS: ANION GAP 15.5 MEQ/L (5-15); BLOOD UREA NITROGEN 21 mg/dL (7-17); CHLORIDE 114 mmol/L (98-107); Calcium 8.4 mg/dL (8.4-10.2); Creatinine 1 0.61 mg/dL (0.52-1.04); EST GLOMERULAR FILTRATION RATE > 60.0 ML/MIN; Glucose 183 mg/dL (74-106); Potassium 3.9 mmol/L (3.5-5.1); SODIUM 134 mmol/L (137-145)
[2021-08-10 19:29] LABS: Carbon Dioxide 8 mmol/L (22-30)
[2021-08-10] MEDS ORDERED: Lantus Insulin ONE (19:31)
[2021-08-10] MEDS ORDERED: Lantus Insulin SQ ONE (19:39)
[2021-08-10] MEDS: Sodium Chloride 0.9% 1000 ML 1,000 ML IV SCH (20:24)
[2021-08-10] MEDS ORDERED: Glucotrol 5 MG PO ONE (22:00)
[2021-08-10] MEDS ORDERED: Glucophage 500 MG PO ONE (22:00)
[2021-08-10] MEDS ORDERED: Neurontin 100 MG PO ONE (22:00)
[2021-08-10] MEDS ORDERED: Depakote EXTENDED RELEASE 250 MG PO ONE (22:00)
[2021-08-10 23:54] LABS: ANION GAP 18.4 MEQ/L (5-15); BLOOD UREA NITROGEN 22 mg/dL (7-17); CHLORIDE 109 mmol/L (98-107); Calcium 8.2 mg/dL (8.4-10.2); Creatinine 1 0.68 mg/dL (0.52-1.04); EST GLOMERULAR FILTRATION RATE > 60.0 ML/MIN; Glucose 311 mg/dL (74-106); SODIUM 129 mmol/L (137-145)
[2021-08-11 00:19] LABS: Carbon Dioxide 5 mmol/L (22-30)
[2021-08-11] MEDS ORDERED: HUMALOG SQ ONE (02:00)
[2021-08-11 06:43] LABS: Hematocrit 37.5 % (35-47); Hemoglobin 12.7 gm/dl (12.0-16.0); Mean Cell Volume 92.4 fl (78-100); Mean Corpuscular Hemoglobin 31.3 pg (26-32); Mean Corpuscular Hgb Concent. 33.9 g/dl (32-36); Mean Platelet Volume 11.2 fl (7.5-11.0); Platelet Count 278 K/mm3 (150-450); Red Blood Count 4.06 M/mm3 (4.1-5.4); Red Cell Distribution Width 12.9 % (11.5-14.0); White Blood Count 19.1 K/mm3 (4.0-10.5)
[2021-08-11 06:47] LABS: ALBUMIN 3.1 g/dL (3.5-5.0); ALKALINE PHOSPHATASE 86 U/L (38-126); ANION GAP 19.2 MEQ/L (5-15); BLOOD UREA NITROGEN 20 mg/dL (7-17); CHLORIDE 106 mmol/L (98-107); Calcium 8.2 mg/dL (8.4-10.2); Creatinine 1 0.64 mg/dL (0.52-1.04); EST GLOMERULAR FILTRATION RATE > 60.0 ML/MIN; Glucose 224 mg/dL (74-106); Potassium 3.3 mmol/L (3.5-5.1); SGOT/AST 23 U/L (14-36); SGPT/ALT 13 U/L (0-35); SODIUM 130 mmol/L (137-145); Total Protein 5.4 g/dL (6.3-8.2)
[2021-08-11] MEDS: Sodium Chloride 0.9% 1000 ML 1,000 ML IV SCH (07:16)
[2021-08-11 07:45] LABS: Carbon Dioxide 9 mmol/L (22-30)
[2021-08-11] MEDS ORDERED: Glucophage 500 MG PO SCH (08:00)
[2021-08-11] MEDS ORDERED: Glucotrol 5 MG PO SCH (08:30)
[2021-08-11] MEDS ORDERED: HUMALOG SQ PRN (08:37)
[2021-08-11] MEDS ORDERED: HUMALOG ONE (08:41)
--- NOTE | 2021-08-11 08:49 | HP ---
CHIEF COMPLAINT: High sugar, feeling horrible, nausea, vomiting, shortness of breath. HISTORY OF PRESENT ILLNESS: A 36-year-old white female appeared in the emergency room at midnight and was diagnosed with diabetic ketoacidosis. She was started on insulin and IV fluids and was found to have a positive COVID test. She was going to be admitted when she left against medical advice. When she returned several hours later still being nauseated and feeling very bad and she then placed on the COVID unit. TRAVEL RISK: None. CORONAVIRUS SCREENING: No known COVID exposure that she knows of which she retracted and said she has been around people with COVID. She said she had one vaccine of Moderna and the second one was on 01/22/2021. MEDICATIONS: Depakote 500, Synthroid 88, Zoloft 50, Metformin 500 b.i.d., gabapentin 100 h.s. ALLERGIES: ASENAPINE. LURASIDONE. LATEX. NICKEL. ADHESIVE TAPE. PAST MEDICAL HISTORY: History of asthma in the past. She was told she has chronic obstructive pulmonary disease. Diabetes mellitus type II, hypothyroidism. She said she has fibromyalgia. Bipolar, has post-traumatic stress disorder and schizophrenic PAST SURGICAL HISTORY: section. Ablation of uterus. REVIEW OF SYSTEMS: HEENT: No sore throat but dry mouth. CHEST: Coughing frequently CVS: No chest pain. ABDOMEN: She is nauseated, vomiting not holding fluids down. : No problems urinating but has not urinated in four or five hours. MUSCULOSKELETAL: She aches all over. SKIN: No skin problems. PSYCHOLOGICAL: She has some diagnosis because of her medicines and the fact that she has an adult as her guardian. She states she has been told that she is bipolar, has post-traumatic stress disorder and schizophrenic. GI: She usually eats well with no problems but she has had some type of hepatitis. SOCIAL HISTORY: The patient smokes at least a pack a day when she can get them for 21 years. Alcohol use - None. Drug use - Marijuana she admits to. PHYSICAL EXAMINATION: GENERAL APPEARANCE: The patient looks older than her age. She is very thin, looks acutely ill. HEENT: Eyes - No jaundice. Pupils equal and reactive to light. NECK: No nodes. Very thin. CHEST: Clear. CVS: No murmurs or gallops. ABDOMEN: Slightly tender all over. EXTREMITIES: Muscle tenderness in the calves. No edema. LAB DATA AND TESTS: IMPRESSION: The patient has: 1) Diabetic ketoacidosis. 2) Diabetes mellitus type II. 3) She tested positive for COVID. 4) Her main complaints of short of breath, cough, myalgia. PLAN: The patient will be treated with some Remdesivir. We will load her up with more IV fluid and she seems to be quite dehydrated and has acidosis going on by labs. Will watch for any behavior disorders as she seems to be a little distraught on admission and has a history of that. PROGNOSIS: Prognosis so far felt to be good.
[2021-08-11 08:54] VITALS: BP 127/71
[2021-08-11] MEDS ORDERED: Abilify 10 MG PO SCH (10:00)
[2021-08-11] MEDS ORDERED: ATARAX 25 MG PO SCH (10:00)
[2021-08-11] MEDS ORDERED: HYDROXYZINE PAMOATE 50 MG PO SCH (10:00)
[2021-08-11] MEDS ORDERED: ZOLOFT 50 MG TABLET PO SCH (10:00)
[2021-08-11] MEDS ORDERED: NON-FORMULARY ITEM (Sertraline Hcl [Zoloft] 100 MG Tablet) PO SCH (10:00)
[2021-08-11] MEDS ORDERED: REMDESIVIR 100 MG in Sodium Chloride 0.9% 100 ML BAG 100 ML IV SCH (10:00)
[2021-08-11] MEDS ORDERED: ARIPIPRAZOLE 20 MG PO SCH (10:00)
[2021-08-11] MEDS: ENOXAPARIN SODIUM SQ SCH (10:17)
[2021-08-11] MEDS: PROTONIX 40 MG IV IV SCH (10:17)
[2021-08-11 10:33] VITALS: O2SAT 97
[2021-08-11 10:44] VITALS: PULSE 67
[2021-08-11] MEDS ORDERED: Neurontin 100 MG PO SCH (22:00)
[2021-08-11] MEDS ORDERED: NON-FORMULARY ITEM (Divalproex Sodium [Divalproex Sodium Er] 500 MG Tab.Er.24h) PO SCH (22:00)
[2021-08-11] MEDS ORDERED: Depakote EXTENDED RELEASE 250 MG PO SCH (22:00)
== END 2021-08-11 11:40 | disposition home or self-care (01) ==
LOC: ED 09:31 → INTOOBSV 11:44 → MED SURG 11:44 → OBSVTOIN 11:44
PROVIDERS: ADMIT Family Medicine; ATTEND Family Medicine
DX: U07.1 COVID-19 (principal); E11.10 Type 2 diabetes mellitus with ketoacidosis without coma; E03.9 Hypothyroidism, unspecified; J44.9 Chronic obstructive pulmonary disease, unspecified; F17.200 Nicotine dependence, unspecified, uncomplicated; F31.9 Bipolar disorder, unspecified; Z79.899 Other long term (current) drug therapy; Z20.828 Contact with and (suspected) exposure to other viral communicable diseases
CPT/HCPCS: 36415; 80048; 80053; 82947; 83735; 84100; 85027; 85379; 93268; 94762; 99284; G0378; J1650; J1817; A9270-GY